=== PATIENT | male | born 1990 | race Caucasian/White ===

== ENCOUNTER 2017-04-05 20:19 | Observation (INO) | payer SELFPAY ==
[~2017-04-05] VITALS: Ht 180.3 cm; Wt 57.0 kg
[2017-04-05 20:47] LABS: BASO # 0.1 (0.0-0.2); BASO % 0.5 % (0.0-2.0); GRAN # 10.3 (1.4-6.5); GRAN % 84.6 % (42.2-75.2); HEMATOCRIT 48.4 % (42.0-52.0); HEMOGLOBIN 17.3 g/dl (13.5-18.0); LYMPH # 0.8 (1.2-3.4); LYMPH % 6.2 % (20.0-51.0); MEAN CELL VOLUME 86 fl (80.0-100.0); MEAN CORPUSCULAR HEMOGLOBIN 31 pg (27.0-31.0); MEAN CORPUSCULAR HGB CONC 36 g/dl (33.0-37.0); MEAN PLATELET VOLUME 9.5 fl (7.4-10.4); MONO % 8.3 % (1.7-9.3); PLATELET COUNT 310 K/mm3 (130-400); RED BLOOD COUNT 5.64 M/mm3 (4.20-5.60); REDCELL DISTRIBUTION WIDTH-CV 12.3 % (11.5-14.5); WHITE BLOOD COUNT 12.1 K/mm3 (4.8-10.8)
[2017-04-05 20:53] LABS: PH 5 (5-8); SQUAMOUS EPITHELIAL 0-2 /hpf; URINE APPEARANCE Cloudy; URINE BACTERIA None Seen /hpf; URINE BILIRUBIN Negative (NEGATIVE); URINE BLOOD 2+ (NEGATIVE); URINE COLOR Amber; URINE GLUCOSE Negative (NEGATIVE); URINE KETONE 1+ (NEGATIVE); URINE UROBILINOGEN >=4.0 mg/dL (NEGATIVE)
[2017-04-05 20:58] LABS: ADJUSTED CALCIUM 8.6 mg/dL (8.4-10.2); ALANINE AMINOTRANSFERASE 20 U/L (21-72); ALBUMIN 5.6 gm/dL (3.5-5.0); ALKALINE PHOSPHATASE 54 U/L (50-136); ANION GAP 23 mmol/L (7-16); BILIRUBIN,TOTAL 1.5 mg/dL (0.0-1.0); BLOOD UREA NITROGEN 36 mg/dL (9-20); CALCIUM 9.9 mg/dL (8.4-10.2); CHLORIDE 99 mmol/L (98-107); CREATININE, serum 1.22 mg/dL (0.66-1.25); GLUCOSE 144 mg/dL (74-106); POTASSIUM 3.9 mmol/L (3.4-5.0); SODIUM 135 mmol/L (137-145); TOTAL PROTEIN 9.1 gm/dL (6.4-8.2)
[2017-04-05 21:00] LABS: ACETAMINOPHEN < 10 ug/mL (10-30); C-REACTIVE PROTEIN < 0.5 mg/dL (0.0-0.9); SALICYLATE < 1.0 mg/dL
[2017-04-05 21:01] LABS: AMPHETAMINE URINE NEGATIVE; BARBITURATES URINE NEGATIVE; BENZODIAZEPINES URINE NEGATIVE; BUPRENORPHINE URINE NEGATIVE; METHADONE URINE NEGATIVE; OPIATES URINE NEGATIVE; OXYCODONE URINE NEGATIVE; PHENCYCLIDINE URINE NEGATIVE; PROPOXYPHENE URINE NEGATIVE; THC CANNABINOIDS URINE NEGATIVE
[2017-04-05 21:02] LABS: CARBON DIOXIDE 13 mmol/L (22-30)
[2017-04-05 22:22] LABS: CALCIUM 7.9 mg/dL (8.4-10.2); CREATININE, serum 0.97 mg/dL (0.66-1.25); POTASSIUM 3.9 mmol/L (3.4-5.0)
[2017-04-06 12:08] LABS: ADJUSTED CALCIUM 8.3 mg/dL (8.4-10.2); ALBUMIN 3.5 gm/dL (3.5-5.0); BILIRUBIN,TOTAL 1.1 mg/dL (0.0-1.0); CALCIUM 7.9 mg/dL (8.4-10.2); CREATININE, serum 0.72 mg/dL (0.66-1.25); POTASSIUM 3.7 mmol/L (3.4-5.0); TOTAL PROTEIN 5.9 gm/dL (6.4-8.2)
[2017-04-06 12:26] LABS: PROLACTIN 11.6 ng/mL (3.7-17.9)
[2017-04-06 15:32] VITALS: BP 111/58; PULSE 74; TEMP 97.6
[2017-04-06 18:03] VITALS: BP 108/66; PULSE 60; TEMP 97.9
[2017-04-06 20:15] VITALS: BP 120/79; PULSE 80; TEMP 98.3
[2017-04-07 01:04] VITALS: BP 102/70; PULSE 59; TEMP 97.5
[2017-04-07 06:56] LABS: BASO # 0.1 (0.0-0.2); BASO % 0.7 % (0.0-2.0); EOS # 0.1 (0.0-0.7); GRAN # 4.6 (1.4-6.5); GRAN % 67.3 % (42.2-75.2); LYMPH # 1.4 (1.2-3.4); LYMPH % 20.5 % (20.0-51.0); MEAN CELL VOLUME 88 fl (80.0-100.0); MEAN CORPUSCULAR HGB CONC 35 g/dl (33.0-37.0); MEAN PLATELET VOLUME 9.6 fl (7.4-10.4); MONO # 0.7 (0.1-0.6); MONO % 9.9 % (1.7-9.3); RED BLOOD COUNT 4.31 M/mm3 (4.20-5.60); REDCELL DISTRIBUTION WIDTH-CV 12.2 % (11.5-14.5); WHITE BLOOD COUNT 6.8 K/mm3 (4.8-10.8)
[2017-04-07 07:00] LABS: HEMOGLOBIN 13.2 g/dl (13.5-18.0); MEAN CORPUSCULAR HEMOGLOBIN 31 pg (27.0-31.0); PLATELET COUNT 197 K/mm3 (130-400)
[2017-04-07 07:15] LABS: CALCIUM 8.6 mg/dL (8.4-10.2); CREATININE, serum 0.71 mg/dL (0.66-1.25); POTASSIUM 3.7 mmol/L (3.4-5.0)
[2017-04-07 07:56] VITALS: BP 106/66; PULSE 78; TEMP 98.3
[2017-04-07 15:15] VITALS: BP 115/74; PULSE 66; TEMP 99.6
[2017-04-07 21:14] VITALS: BP 90/57; PULSE 70; TEMP 97.7
[2017-04-08] VITALS (8 sets, daily range): BP systolic 81–121; BP diastolic 58–88; PULSE 51–84; TEMP 98.1–98.9
[2017-04-08 09:03] LABS: ADJUSTED CALCIUM 8.7 mg/dL (8.4-10.2); ALBUMIN 3.5 gm/dL (3.5-5.0); BILIRUBIN,TOTAL 0.9 mg/dL (0.0-1.0); CALCIUM 8.3 mg/dL (8.4-10.2); CREATININE, serum 0.72 mg/dL (0.66-1.25); POTASSIUM 3.4 mmol/L (3.4-5.0); TOTAL PROTEIN 5.9 gm/dL (6.4-8.2)
[2017-04-09 04:10] VITALS: BP 93/65; PULSE 52; TEMP 98.3
== END 2017-04-09 08:55 ==
LOC: COL.ER 20:19 → MEDICAL 04-06 11:35 → ICU 04-08 08:12
PROVIDERS: Emergency Medicine; Nurse Practitioner; Nurse Practitioner Family; Psychiatry & Neurology Psychiatry
DX: F29 Unspecified psychosis not due to a substance or known physiological condition (principal); E86.0 Dehydration; D64.9 Anemia, unspecified; E46 Unspecified protein-calorie malnutrition; R00.0 Tachycardia, unspecified; R25.1 Tremor, unspecified; Z83.3 Family history of diabetes mellitus
CPT/HCPCS: 90791-AI; 99222-AI; 99231-AI; G0378; J1650; J2060; J7030; J7042